=== PATIENT | female | born 1995 | race African-American/Black ===

== ENCOUNTER 2017-01-02 09:19 | Emergency (ER) | payer MEDICAID, OTHER ==
[~2017-01-02] VITALS: Ht 177.8 cm; Wt 73.0 kg
[2017-01-02] MEDS ORDERED: ACETAMINOPHEN 325MG TABLET PO STA (09:55)
[2017-01-02 10:16] LABS: BASOPHILS % 0.7 % (0.0-2.0); EOSINOPHILS % 0.3 % (0.0-5.0); HEMATOCRIT. 34.8 % (36.0-48.0); HEMOGLOBIN. 11.1 g/dL (12.0-16.0); LYMPHOCYTES % 35.8 % (20.0-50.0); MEAN CORPUSCULAR HEMOGLOBIN 25.6 pg (28.0-32.0); MEAN CORPUSCULAR HGB CONC 31.8 g/dL (31.0-37.0); MEAN CORPUSCULAR VOLUME 80.7 fL (81.0-99.0); MEAN PLATELET VOLUME 9.6 fl (7.4-10.4); MONOCYTES % 6.4 % (2.0-8.0); NEUTROPHILS % 56.8 % (40.0-76.0); PLATELET 320 x1000/uL (130-400); RED BLOOD CELL COUNT 4.31 mill/uL (4.2-5.4); RED CELL DISTRIBUTION WIDTH 16.5 % (11.6-14.6); WHITE BLOOD COUNT 6.4 x1000/uL (4.5-11.0)
[2017-01-02 10:35] LABS: ANION GAP 15; B-HCG QUANTITATIVE < 1 mIU/mL (<3); CALCIUM 8.8 mg/dL (8.5-10.1); CARBON DIOXIDE 23 mEq/L (21-32); CHLORIDE 106 mEq/L (98-107); INDEX HEMOLYSI 1 (1-3); INDEX ICTERIC 1 (1-4); INDEX LIPEMIC 1 (1-3); UREA NITROGEN BLOOD 11 mg/dL (7-21); eGFR > 60 mL/min (>60)
[2017-01-02 13:13] LABS: CLARITY URINE CLEAR (CLEAR); COLOR URINE YELLOW (YELLOW); GLUCOSE URINE NEGATIVE (NEGATIVE); KETONES URINE NEGATIVE (NEGATIVE); LEUKOCYTE ESTERASE URINE TRACE (NEGATIVE); NITRITE URINE NEGATIVE (NEGATIVE); OCCULT BLOOD URINE NEGATIVE (NEGATIVE); PH URINE 5.5 (4.5-8.0); PROTEIN URINE NEGATIVE (NEGATIVE); SPECIFIC GRAVITY URINE 1.025 (1.005-1.030)
[2017-01-02 13:26] LABS: BACTERIA URINE NONE SEEN; RBC URINE 0-2 /hpf (0-2); SQUAMOUS EPITHELIAL CELL URINE FEW /lpf (RARE/1+)
[2017-01-02 13:27] LABS: TRICHOMONAS URINE RARE
[2017-01-02 13:37] LABS: *BARBITURATES SCREEN URINE NEGATIVE (NEGATIVE); *BENZODIAZEPINES SCREEN URINE NEGATIVE (NEGATIVE); *COCAINE SCREEN URINE NEGATIVE (NEGATIVE); CANNABINOID URINE SCREEN NEGATIVE (NEGATIVE); METHADONE URINE SCREEN NEGATIVE (NEGATIVE); OPIATES URINE SCREEN NEGATIVE (NEGATIVE)
[2017-01-02 13:49] LABS: *AMPHETAMINES SCREEN URINE PRESUMTIVE POSITIVE (NEGATIVE)
[2017-01-02 13:50] LABS: ECSTASY MDMA SCREEN URINE CONF.TEST INDICATED (NEGATIVE); PHENCYCLIDINE URINE SCREEN PRESUMTIVE POSITIVE (NEGATIVE)
[2017-01-02] MEDS ORDERED: METRONIDAZOLE 500MG TABLET PO SCH (14:00)
[2017-01-02] MEDS ORDERED: METRONIDAZOLE 250MG TABLET PO ONE (14:30)
[2017-01-02 14:32] VITALS: BP 117/64
== END 2017-01-02 14:32 | disposition home or self-care (01) ==
LOC: ER 10:13
DX: O98.811 Other maternal infectious and parasitic diseases complicating pregnancy, first trimester (principal); A59.00 Urogenital trichomoniasis, unspecified; Z3A.08 8 weeks gestation of pregnancy; O20.9 Hemorrhage in early pregnancy, unspecified; O99.311 Alcohol use complicating pregnancy, first trimester; F10.10 Alcohol abuse, uncomplicated; O99.321 Drug use complicating pregnancy, first trimester; F16.10 Hallucinogen abuse, uncomplicated; F15.10 Other stimulant abuse, uncomplicated; F19.10 Other psychoactive substance abuse, uncomplicated
CPT/HCPCS: 36415; 76830; 76856; 80048; 80305; 81001; 81025; 84702; 85025; 86850; 86900; 99285

== ENCOUNTER 2017-03-24 18:23 | Emergency (ER) | payer MEDICAID ==
[~2017-03-24] VITALS: Ht 175.3 cm; Wt 77.5 kg
[2017-03-25] MEDS ORDERED: CEPHALEXIN 500MG CAPSULE PO ONE (00:45)
[2017-03-25] MEDS ORDERED: TETANUS, DIPHTHERIA, PERTUSSIS VAC/PF 0.5ML (>7YR OLD) IM ONE (00:45)
[2017-03-25] MEDS ORDERED: HYDROCODONE/ACETAMINOPHEN 5/325MG TABLET PO ONE (00:45)
[2017-03-25] MEDS ORDERED: SULFAMETHOXAZOLE/TRIMETHOPRIM 800/160MG TABLET PO ONE (00:45)
[2017-03-25] MEDS ORDERED: BACITRACIN/POLYMYXIN B SULFATE OINT 15GM TOP ONE (00:45)
[2017-03-25 01:12] VITALS: BP 121/69
== END 2017-03-25 02:28 | disposition home or self-care (01) ==
LOC: ER 18:33 → CANBEDREQ 03-25 05:48
DX: T25.211A Burn of second degree of right ankle, initial encounter (principal); T24.231A Burn of second degree of right lower leg, initial encounter; X19.XXXA Contact with other heat and hot substances, initial encounter; Y93.G3 Activity, cooking and baking; Y92.89 Other specified places as the place of occurrence of the external cause; Y99.8 Other external cause status
CPT/HCPCS: 16020; 81025; 99285; J7030; X7700; Z7610; 90715